=== PATIENT | male | born 1945 | race Caucasian/White ===

== ENCOUNTER → 2019-12-31 12:32 | Outpatient (CLI) | payer MEDICARE, OTHER, SELFPAY ==
--- NOTE | 2019-12-31 | DI.US.S_ITS ---
PROCEDURE: US CAROTID DOPPLER BI INDICATIONS: ESSENTIAL (PRIMARY) HTN TECHNIQUE: Color and pulse Doppler interrogation was performed of both carotid systems, with image documentation and velocity measurements. COMPARISON: None. FINDINGS: Stenosis calculations are based on SRU ([employer] in [employer]) criteria. Right side: Brachial blood pressure: 156/86 mm Hg. Common carotid artery peak systolic velocity: 90 cm/sec. Internal carotid artery peak systolic velocity: 69 cm/sec. Internal carotid artery end diastolic velocity: 18 cm/sec. External carotid artery peak systolic velocity: 104 cm/sec. ICA/CCA peak systolic ratio: 0.8. Galaviz scale imaging description: Normal appearance Percent internal carotid artery stenosis: None found. Vertebral artery: Flow direction is antegrade. Left side: Brachial blood pressure: 158/83 mm Hg. Common carotid artery peak systolic velocity: 121 cm/sec. Internal carotid artery peak systolic velocity: 65 cm/sec. Internal carotid artery end diastolic velocity: 14 cm/sec. External carotid artery peak systolic velocity: 119 cm/sec. ICA/CCA peak systolic ratio: 0.5. Galaviz scale imaging description: No abnormality seen. Percent internal carotid artery stenosis: None found. Vertebral artery: Flow direction is antegrade. IMPRESSION: No abnormality found bilaterally. Dictated by: Adriano Womack M.D. on 12/31/2019 at 15:35 Approved by: Adriano Womack M.D. on 12/31/2019 at 15:36
== END ==
PROVIDERS: PCP Specialist; Referring Provider Internal Medicine Cardiovascular Disease; Visit Provider Internal Medicine Cardiovascular Disease
DX: I65.21 Occlusion and stenosis of right carotid artery; I10 Essential (primary) hypertension; E78.5 Hyperlipidemia, unspecified; G47.20 Circadian rhythm sleep disorder, unspecified type
CPT/HCPCS: 93880